=== PATIENT | female | born 1945 | race Caucasian/White ===

== ENCOUNTER → 2017-06-17 17:04 | Outpatient (CLI) | payer OTHER, BC ==
[2012-06-21 12:32] VITALS: BMI 18.5
== END | disposition home or self-care (01) ==
LOC: D.MAMMO 14:45
DX: Z12.31 Encounter for screening mammogram for malignant neoplasm of breast (principal)

== ENCOUNTER → 2017-10-26 09:47 | Outpatient (CLI) | payer MEDICARE, OTHER ==
[2012-06-21 12:32] VITALS: BMI 18.5
== END | disposition home or self-care (01) ==
LOC: D.CT 10-20 08:00
DX: R10.9 Unspecified abdominal pain (principal)